=== PATIENT | female | born 2000 | race Two or more races ===

== ENCOUNTER 2019-06-28 21:20 | Emergency (ER) | payer OTHER ==
[~2019-06-28] VITALS: Ht 157.5 cm; Wt 76.9 kg
[2019-06-28 21:22] VITALS: BP 122/86
[2019-06-28] MEDS ORDERED: DEXAMETHASONE 4 MG TABLET PO STA (22:01)
[2019-06-28] MEDS ORDERED: DEXAMETHASONE 4 MG TABLET ONE (22:03)
[2019-06-28] MEDS ORDERED: DEXAMETHASONE 4 MG TABLET PO ONE (22:30)
== END 2019-06-28 22:01 | disposition home or self-care (01) ==
LOC: ED 21:40
DX: J20.8 Acute bronchitis due to other specified organisms (principal); J02.8 Acute pharyngitis due to other specified organisms; B97.89 Other viral agents as the cause of diseases classified elsewhere
CPT/HCPCS: 99282

== ENCOUNTER 2019-12-29 00:06 | Emergency (ER) | payer OTHER ==
[~2019-12-29] VITALS: Ht 157.5 cm; Wt 75.8 kg
--- NOTE | 2019-12-29 00:41 | NUR ---
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 NO ACUTE DISTRESS NOTED.
--- NOTE | 2019-12-29 00:49 | NUR ---
First contact with patient: Patient presents to ER c/o RLQ abd pain with nausea x3-4 hours. Patient states pain came on suddenly. She has had this pain before and was seen for it but tests performed were normal. Patient states she recently had a new IUD put in approx 3 weeks ago. Denies vomiting, diarrhea, or vaginal discharge or bleeding. Patient is in NAD. Respirations even and unlabored.
[2019-12-29 01:06] LABS: MICROSCOPIC NOT IND
[2019-12-29 01:33] LABS: BASOPHILS % (AUTO) 0 % (0-1); EOSINOPHILS % (AUTO) 3 % (1-7); LYMPHOCYTES # (AUTO) 1.08 x10^3/uL (1-3.4); LYMPHOCYTES % (AUTO) 15 % (22-44); MD NO; MEAN CORPUSCULAR HEMOGLOBIN 29.9 pg (27.0-34.8); MEAN CORPUSCULAR HGB CONC 33.5 g/dL (32.4-35.8); MEAN CORPUSCULAR VOLUME 89.3 fL (80-100); MEAN PLATELET VOLUME 9.1 fL (7.4-10.4); MONOCYTES # (AUTO) 0.54 x10^3/uL (0.2-0.8); MONOCYTES % (AUTO) 8 % (2-9); NEUTROPHILS # (AUTO) 5.25 x10^3/uL (1.8-6.8); NEUTROPHILS % (AUTO) 74 % (42-75); PLATELET COUNT 280 x10^3/uL (130-400); RED BLOOD COUNT 4.47 x10^6/uL (3.82-5.3); RED CELL DISTRIBUTION WIDTH 12.8 % (9.6-15.2)
[2019-12-29 01:44] LABS: ALBUMIN 3.8 g/dL (3.4-5.0); ANION GAP 5 mmol/L (5-15); CALCIUM 9.1 mg/dL (8.5-10.1); CHLORIDE 109 mmol/L (98-107); CREATININE 0.75 mg/dL (0.55-1.02)
--- NOTE | 2019-12-29 02:12 | NUR ---
Patient in [place].
[2019-12-29 02:40] VITALS: BP 112/77
--- NOTE | 2019-12-29 03:19 | NUR ---
Discharge instructions given. All questions and concerns addressed. Patient ambulatory with a steady gait. Belongings with patient.
== END 2019-12-29 03:20 | disposition home or self-care (01) ==
LOC: ED 01:38
DX: G89.29 Other chronic pain (principal); R10.31 Right lower quadrant pain; R11.0 Nausea
CPT/HCPCS: 36415; 76830; 80048; 81003; 82040; 84703; 85025; 99284

== ENCOUNTER → 2020-01-29 | Outpatient (CLI) | payer OTHER | END | disposition home or self-care (01) | LOC: CFH 07:07 | PROVIDERS: ATTEND Obstetrics & Gynecology Gynecology | DX: R10.2 Pelvic and perineal pain (principal) | CPT/HCPCS: 76830 ==

== ENCOUNTER → 2020-04-06 | Outpatient (CLI) | payer OTHER ==
[2020-04-06 14:19] LABS: BASOPHILS % (AUTO) 1 % (0-1); EOSINOPHILS % (AUTO) 3 % (1-7); LYMPHOCYTES % (AUTO) 17 % (22-44); MEAN CORPUSCULAR HEMOGLOBIN 29.7 pg (27.0-34.8); MEAN CORPUSCULAR HGB CONC 33.2 g/dL (32.4-35.8); MEAN PLATELET VOLUME 8.7 fL (7.4-10.4); MONOCYTES % (AUTO) 8 % (2-9); NEUTROPHILS % (AUTO) 71 % (42-75); PLATELET COUNT 306 x10^3/uL (130-400); RED BLOOD COUNT 4.56 x10^6/uL (3.82-5.3); RED CELL DISTRIBUTION WIDTH 12.7 % (9.6-15.2)
[2020-04-06 14:23] LABS: MD NO
[2020-04-06 14:31] LABS: ALANINE AMINOTRANSFERASE 33 U/L (12-78); CALCIUM 9.2 mg/dL (8.5-10.1); CREATININE 0.93 mg/dL (0.55-1.02)
[2020-04-06 14:35] LABS: ALKALINE PHOSPHATASE 89 U/L (45-117); BILIRUBIN,TOTAL 0.4 mg/dL (0.2-1.0); TOTAL PROTEIN 7.2 g/dL (6.4-8.2)
[2020-04-06 14:39] LABS: ANION GAP 4 mmol/L (5-15); CHLORIDE 109 mmol/L (98-107)
[2020-04-06 14:47] LABS: MICROSCOPIC AUTO
== END | disposition home or self-care (01) ==
LOC: STAR 13:29
PROVIDERS: ATTEND Obstetrics & Gynecology Gynecology
DX: Z01.812 Encounter for preprocedural laboratory examination (principal); R10.2 Pelvic and perineal pain; N94.10 Unspecified dyspareunia; K59.00 Constipation, unspecified; Z20.828 Contact with and (suspected) exposure to other viral communicable diseases
CPT/HCPCS: 80053; 81001; 84703; 85025; 87077; 87086; 87186; 87635

== ENCOUNTER 2020-04-12 05:42 | Day surgery (SDC) | payer OTHER ==
[~2020-04-12] VITALS: Ht 157.5 cm; Wt 76.0 kg
[2020-04-12] MEDS ORDERED: NO HOME MEDS PER PT (06:30)
[2020-04-12] MEDS ORDERED: LACTATED RINGERS 1,000 ML IV SCH (06:30)
[2020-04-12] MEDS ORDERED: CHLORHEXIDINE 15 ML UDC MM ONE (06:30)
[2020-04-12 06:31] VITALS: BP 119/83
[2020-04-12] MEDS ORDERED: CHLORHEXIDINE 15 ML UDC ONE (06:34)
[2020-04-12] MEDS ORDERED: FENTANYL PF 100 MCG/2ML ONE ×2 (06:46→07:46)
[2020-04-12] MEDS ORDERED: MIDAZOLAM 1 MG/ML, 2ML ONE (06:46)
[2020-04-12] MEDS ORDERED: SUCCINYLCHOLINE 20 MG/ML, 10ML ONE (07:18)
[2020-04-12] MEDS ORDERED: NEOSTIGMINE 1 MG/ML, 10ML ONE (07:18)
[2020-04-12] MEDS ORDERED: GLYCOPYRROLATE 0.2MG/1ML, 5ML ONE (07:18)
[2020-04-12] MEDS ORDERED: ONDANSETRON 2MG/ML, 2ML ONE (07:18)
[2020-04-12] MEDS ORDERED: ROCURONIUM 10 MG/ML,10ML ONE (07:18)
[2020-04-12] MEDS ORDERED: KETOROLAC 30 MG/1 ML ONE (07:18)
[2020-04-12] MEDS ORDERED: PROPOFOL 10 MG/ML, 20ML ONE (07:18)
[2020-04-12] MEDS ORDERED: CEFAZOLIN 1,000 MG ONE (07:18)
[2020-04-12] MEDS ORDERED: DEXAMETHASONE 4 MG/ML, 1ML ONE (07:18)
[2020-04-12 07:29] LABS: HCG UR SG 1.029 (1.003-1.030)
[2020-04-12] MEDS ORDERED: hydrALAzine 20 MG/ML, 1ML IV PRN (09:00)
[2020-04-12] MEDS ORDERED: ONDANSETRON 2MG/ML, 2ML IVPush PRN (09:00)
[2020-04-12] MEDS ORDERED: ACETAMINOPHEN 325 MG TABLET PO PRN (09:00)
[2020-04-12] MEDS ORDERED: METOCLOPRAMIDE 5 MG/ML, 2ML IVPush PRN (09:00)
[2020-04-12] MEDS ORDERED: EPHEDRINE 50 MG/ML, 1ML IVPush PRN (09:00)
[2020-04-12] MEDS ORDERED: FENTANYL PF 100 MCG/2ML IV PRN (09:00)
[2020-04-12] MEDS ORDERED: LABETALOL 5MG/ML, 20ML IV PRN (09:00)
[2020-04-12] MEDS ORDERED: HYDROmorphone 1 MG/ML, 1ML INJ IVPush PRN (09:00)
[2020-04-12] MEDS ORDERED: MEPERIDINE/PF 25MG/0.5ML IVPush PRN (09:00)
[2020-04-12] MEDS ORDERED: HALOPERIDOL 5 MG/ML IV PRN (09:00)
[2020-04-12] MEDS ORDERED: ACETAMINOPHEN 650 MG/20.3 ML UDC ONE (09:09)
[2020-04-12] MEDS ORDERED: OXYcodone 5 MG/5 ML ORAL.SOL UDC ONE (09:36)
[2020-04-12] MEDS: OXYcodone 5 MG/5 ML ORAL.SOL UDC PO PRN ×2 (09:38→10:13)
== END 2020-04-12 11:00 | disposition home or self-care (01) ==
LOC: OUT 05:42
PROVIDERS: ATTEND Obstetrics & Gynecology Gynecology
DX: R10.2 Pelvic and perineal pain (principal); N94.12 Deep dyspareunia; N93.9 Abnormal uterine and vaginal bleeding, unspecified; N80.5 Endometriosis of intestine; Z80.3 Family history of malignant neoplasm of breast; Z82.49 Family history of ischemic heart disease and other diseases of the circulatory system
CPT/HCPCS: 58555; 58662; 81025; 88305; J0330; J0690; J1100; J1885; J2250; J2405; J2704; J2710; J3010; J7120

== ENCOUNTER 2020-05-17 21:36 | Emergency (ER) | payer OTHER ==
[~2020-05-17] VITALS: Ht 157.5 cm; Wt 75.0 kg
[~2020-05-17 21:36] MED LIST: NO HOME MEDS PER PT
--- NOTE | 2020-05-17 21:45 | NUR ---
REPORT FROM ATIF ZAPATA. PT WAITING TO BE EVALUATED BY ERP. VSS. CALL LIGHT IN REACH
--- NOTE | 2020-05-17 23:13 | NUR ---
pt given sprite for saumya tolentino. Will reassess in 15 min. VSS. Call light in reach
[2020-05-17 23:20] LABS: BASOPHILS % (AUTO) 0 % (0-1); EOSINOPHILS % (AUTO) 2 % (1-7); LYMPHOCYTES % (AUTO) 13 % (22-44); MEAN CORPUSCULAR HEMOGLOBIN 30.1 pg (27.0-34.8); MEAN CORPUSCULAR HGB CONC 33.9 g/dL (32.4-35.8); MEAN PLATELET VOLUME 8.9 fL (7.4-10.4); MONOCYTES % (AUTO) 8 % (2-9); NEUTROPHILS % (AUTO) 76 % (42-75); PLATELET COUNT 285 x10^3/uL (130-400); RED BLOOD COUNT 4.29 x10^6/uL (3.82-5.3); RED CELL DISTRIBUTION WIDTH 12.9 % (9.6-15.2)
[2020-05-17 23:21] LABS: MD NO
[2020-05-17 23:27] LABS: ANION GAP 7 mmol/L (5-15); CALCIUM 8.9 mg/dL (8.5-10.1); CHLORIDE 110 mmol/L (98-107); CREATININE 0.82 mg/dL (0.55-1.02)
[2020-05-17 23:29] LABS: CREATINE KINASE, TOTAL 264 U/L (26-192)
[2020-05-17 23:53] VITALS: BP 106/75
--- NOTE | 2020-05-17 23:53 | NUR ---
Patient given discharge instructions and they have confirmed that they understand the instructions. Patient ambulatory with steady gait.
== END 2020-05-17 23:55 | disposition home or self-care (01) ==
LOC: ED 22:41
DX: M79.10 Myalgia, unspecified site (principal); R06.02 Shortness of breath; M79.605 Pain in left leg; G89.29 Other chronic pain
CPT/HCPCS: 36415; 80048; 82550; 83735; 85025; 85379; 99283

== ENCOUNTER → 2020-08-15 | Outpatient (CLI) | payer OTHER ==
[~2020-08-15] MED LIST changes: +GADOTERATE 5 MMOL/10 ML VIAL ONE; +LIDOCAINE-MPF 1%, 5ML ONE; +OMNIPAQUE 180 MG/ML, 10ML VIAL ONE; +ROPivacaine/PF 0.2%, 10 ML ONE; +TRIAMCINOLONE ACETONIDE 40 MG/ML, 1ML ONE
== END | disposition home or self-care (01) ==
LOC: RAD 08:06
PROVIDERS: ATTEND Nurse Practitioner
DX: M70.61 Trochanteric bursitis, right hip (principal); M25.851 Other specified joint disorders, right hip
CPT/HCPCS: 27093; 73525; 73722; A9575; J2795; J3301; Q9965